=== PATIENT | female | born 1935 | race Caucasian/White ===

== ENCOUNTER 2018-12-08 13:53 | Emergency (ER) | payer SELFPAY ==
[~2018-12-08] VITALS: Ht 162.6 cm; Wt 57.8 kg
[2018-12-08 14:13] VITALS: BP 113/69; PULSE 83; RESP 16; Ht 162.6 cm; Wt 57.8 kg
--- NOTE | 2018-12-08 15:38 | ERD ---
ER Documentation Chief Complaint Chief Complaint PT C/O "BACTERIAL INFECTION" IN NOSE/THROAT/CHEST HPI 83-year-old female, presents to the emergency department, complaining of a burning sensation in her nose that the patient consider is related to an MRSA infection, the patient reports, receiving multiple doses of antibiotics including 2 courses of Levaquin that finished few days ago without improvement of the symptoms; therefore, the patient wants to receive "the strongest IV antibiotics". The patient brought with her reports is a nasal culture that actually is consistent with methicillin susceptible Staphylococcus aureus ROS All systems reviewed and are negative except as per history of present illness. Allergies Allergies: Coded Allergies: No Known Allergy (Unverified , 12/11/18) PMhx/Soc Medical and Surgical Hx: pt denies Medical Hx, pt denies Surgical Hx FmHx Family History: No diabetes, No coronary disease Physical Exam Vitals Vital Signs Date Temp Pulse Resp B/P (MAP) Pulse Ox O2 O2 Flow FiO2 Time Delivery Rate 12/08/18 97.7 83 16 113/69 97 14:13 (84) Physical Exam Const: No acute distress Head: Atraumatic Eyes: Normal Conjunctiva ENT: Normal External Ears, Nose and Mouth. Neck: Full range of motion. No meningismus. Resp: Clear to auscultation bilaterally Cardio: Regular rate and rhythm, no murmurs Abd: Soft, non tender, non distended. Normal bowel sounds Skin: No petechiae or rashes Back: No midline or flank tenderness Ext: No cyanosis, or edema Neur: Awake and alert Psych: Normal Mood and Affect Procedures/MDM Differential diagnosis include but not limited to: Respiratory infection bacterial/viral/fungal. Asthma, COPD, pneumonitis, allergies, GERD. Less cardiac related, aspiration pneumonia, malignancy. Physical examination unremarkable. No clinical evidence of infection, therefore, antibiotics not indicated at this time. The patient was informed that the evaluation in the emergency department has been done to rule out an acute emergency, therefore, chronic conditions like malignancy or other diseases have not been evaluated; therefore, the patient was instructed to follow up with the primary care provider in the next 48h. If symptoms persist, worsen or new symptoms develop, then patient should return to the ED immediately. Disclaimer: Inadvertent spelling and grammatical errors are likely due to EHR/dictation software use and do not reflect on the overall quality of patient care. Also, please note that the electronic time recorded on this note does not necessarily reflect the actual time of the patient encounter. Departure Diagnosis: Primary Impression: Antibiotic not indicated Condition: Stable Additional Instructions: Thank you very much for allowing us to participate in your care. Your health and safety is our top priority at [facility]. AT THIS TIME THERE IS NO CLINICAL EVIDENCE OF INFECTION, THEREFORE, THERE IS NO INDICATION FOR IV ANTIBIOTICS. The evaluation in the emergency department has been done to rule out an acute emergency. Chronic, prl-[id number] conditions may have not been evaluated; therefore, you need to follow up with a primary care provider in the next 48h. If symptoms persist, worsen or new symptoms develop, then patient should return to the ED immediately. Call your primary care doctor TOMORROW for an appointment during the next 2-4 days. If the symptoms get worse and your provider is unavailable, return to the Emergency Department immediately. ISATU BURNETTE MD Dec 08, 2018 15:38
== END 2018-12-08 15:38 | disposition left against medical advice (07) ==
LOC: FTE 13:53
DX: A49.9 Bacterial infection, unspecified (principal)
CPT/HCPCS: 99282